=== PATIENT | female | born 1995 | race Hispanic/Latino ===

== ENCOUNTER 2020-12-14 15:06 | Emergency (ER) | payer OTHER ==
[~2020-12-14] VITALS: Ht 157.5 cm; Wt 137.9 kg
[2020-12-14] MEDS ORDERED: OMEPRAZOLE20 M2 PO (15:59)
== END 2020-12-14 18:51 | disposition home or self-care (01) ==
LOC: FSED 15:18
DX: O99.63 Diseases of the digestive system complicating the puerperium (principal); K92.89 Other specified diseases of the digestive system; E66.01 Morbid (severe) obesity due to excess calories; K29.70 Gastritis, unspecified, without bleeding; R94.5 Abnormal results of liver function studies; Z68.43 Body mass index [BMI] 50.0-59.9, adult
CPT/HCPCS: 80048; 80076; 81003; 85025; 99283

== ENCOUNTER 2022-01-15 20:37 | Emergency (ER) | payer OTHER ==
[~2022-01-15] VITALS: Ht 157.5 cm; Wt 137.0 kg
[~2022-01-15 20:37] MED LIST: OMEPRAZOLE20 M2 PO
[2022-01-15] MEDS ORDERED: SODIUM CHLORIDE 0.9% 1000ML 1,000 ML IV STA (21:06)
[2022-01-15] MEDS ORDERED: ONDANSETRON HCL INJ 2MG/ML 2ML 2 MG/ML VIAL IV ONE (21:15)
[2022-01-15] MEDS ORDERED: FAMOTIDINE 20 MG/2 ML VIAL IV ONE ×2 (21:15→22:03)
[2022-01-15] MEDS ORDERED: KETOROLAC TROMETHAMINE 30 MG/ML VIAL IV ONE (21:15)
[2022-01-15] MEDS ORDERED: ONDANSETRON HCL INJ 2MG/ML 2ML 2 MG/ML VIAL ONE (22:03)
[2022-01-15] MEDS ORDERED: SODIUM CHLORIDE 0.9% 1000ML 1,000 ML ONE (22:03)
[2022-01-15] MEDS ORDERED: KETOROLAC TROMETHAMINE 30 MG/ML VIAL ONE (22:03)
[2022-01-15] MEDS ORDERED: IOPAMIDOL 370 MG/ML 100 ML INFUS..BTL INJ ONE (22:17)
[2022-01-15] MEDS ORDERED: OMEPRAZOLE40 MG PO (23:08)
[2022-01-15] MEDS ORDERED: ONDANSETRON ODT4 MG PO (23:08)
== END 2022-01-15 23:22 | disposition home or self-care (01) ==
LOC: FSED 20:41
DX: R10.13 Epigastric pain (principal); K29.70 Gastritis, unspecified, without bleeding; R11.0 Nausea; E66.9 Obesity, unspecified
CPT/HCPCS: 74177; 80053; 81003; 81025; 85025; 99284; J1885; J2405; J7030; Q9967